=== PATIENT | male | born 1980 | race Caucasian/White ===

== ENCOUNTER 2016-11-22 20:10 | Emergency (ER) | payer SELFPAY ==
[2016-11-22] MEDS ORDERED: KETOROLAC 30 MG/ML VIAL IVP ONE (20:24)
[2016-11-22] MEDS ORDERED: AMPICILLIN SODIUM/SULBACTAM NA 3 G in 0.9 % SODIUM CHLORIDE 100ML 100 ML IVPB ONE (20:24)
[2016-11-22] MEDS ORDERED: 0.9 % SODIUM CHLORIDE 1,000 ML BAG IV ONE ×2 (20:24→23:13)
--- NOTE | 2016-11-22 20:30 | Emergency Department Record ---
History of Present Illness - General Chief complaint: Dental Stated complaint: DENTAL INFECTION Time Seen by Provider: 11/22/16 20:23 Source: Patient Mode of Arrival: Ambulatory Limitations: No limitations - History of Present Illness Initial comments: 36 yo male presents with right facial pain, swelling, dental pain for 2 days. The pain started near tooth #5. He noted pain and swelling. The pain and swelling have increased with spread to the face and eye lid. He has developed right pain and a loss of vision in his right eye. He states he can only see light and movement. No left eye pain. He was incarcerated. He was released today to seek medical care. His vision changes occurred around noon to 1pm. MD complaint: Tooth pain -: Days(s) (2) Location: Tooth # (5) Severity: Severe Quality: Aching Consistency: Constant Worsens with: Movement Context- Dental: History of dental caries Context- Ear: Recent illness Associated Symptoms: Other (eye pain and vision loss) - Related Data Home Medications Medication Instructions Recorded Confirmed Last Taken No Home Med [NO HOME MEDS] 11/22/16 11/22/16 Unknown Allergies Allergy/AdvReac Type Severity Reaction Status Date / Time cinnamon Allergy Intermediate HIVES Verified 11/22/16 20:19 IMMUNIZATIONS Allergy Mild MUSCLE Uncoded 11/22/16 20:19 STIFFNESS green olives Allergy throat Uncoded 11/22/16 20:19 swelling Review of Systems Constitutional: Denies: Chills, Fever, Malaise, Night sweats, Weakness Eyes: Reports: Eye pain, Photophobia, Vision change. Denies: Eye discharge ENT: Reports: Dental pain. Denies: Congestion, Ear pain, Epistaxis, Hearing loss, Throat pain Respiratory: Denies: Cough, Dyspnea, Hemoptysis, Stridor, Wheezes Cardiovascular: Denies: Chest pain, Palpitations, Syncope Endocrine: Denies: Fatigue Gastrointestinal: Denies: Abdominal pain, Diarrhea, Nausea, Vomiting Genitourinary: Denies: Dysuria, Frequency, Hematuria Musculoskeletal: Denies: Arthralgia, Back pain, Myalgia, Neck pain Skin: Denies: Bruising, Change in color, Rash Neurological: Reports: Headache. Denies: Confusion, Numbness, Paresthesias, Seizure, Tingling, Tremors, Vertigo, Weakness Psychiatric: Denies: Anxiety Hematological/Lymphatic: Denies: Blood Clots, Easy bleeding, Easy bruising, Swollen glands Past Medical History - SOCIAL HISTORY Smoking Status: Current every day smoker - RESPIRATORY Hx Respiratory Disorders: No - CARDIOVASCULAR Hx Cardio Disorders: No - NEURO Hx Neuro Disorders: No - GI Hx GI Disorders: No - Hx Genitourinary Disorders: No - ENDOCRINE Hx Endocrine Disorders: No - MUSCULOSKELETAL Hx Musculoskeletal Disorders: No - PSYCH Hx Psych Problems: No - HEMATOLOGY/ONCOLOGY Hx Hematology/Oncology Disorders: No Physical Exam - General General Appearance: Alert, Oriented x3, Cooperative, No acute distress Limitations: No limitations - Head Head exam: Atraumatic. negative: Normal inspection Image of Face/Head: 1 - edema of the upper and lower lids, soft, able to open the eye, mild injection of the conjunctiva, EOMI but states he only sees movement and light, unable to count fingers 2 - swelling, tenderness, soft, mild erythema - Eye Eye exam: PERRL, Conjunctival injection, EOMI, Periorbital swelling, Periorbital tenderness. negative: Normal appearance - ENT ENT exam: Mucous membranes moist, TM's normal bilaterally. negative: Normal exam, Normal orophraynx Ear exam: Normal external inspection. negative: External canal tenderness Nasal Exam: Normal inspection. negative: Discharge, Sinus tenderness Mouth exam: Tongue normal. negative: Normal external inspection, Drooling, Laceration, Muffled voice, Tongue elevation, Trismus Teeth exam: Dental caries, Dental tenderness #, Fractured tooth #, Gingival enlargement. negative: Normal inspection Throat exam: Normal inspection. negative: Tonsillar erythema, Tonsillar exudate - Neck Neck exam: Normal inspection, Full ROM. negative: Tenderness - Respiratory Respiratory exam: Normal lung sounds bilaterally. negative: Respiratory distress - Cardiovascular Cardiovascular Exam: Regular rate, Normal rhythm, Normal heart sounds - GI/Abdominal GI/Abdominal exam: Soft, Normal bowel sounds. negative: Tenderness - Rectal Rectal exam: Deferred - exam: Deferred - Extremities Extremities exam: Normal inspection, Full ROM, Normal capillary refill. negative: Tenderness - Back Back exam: Reports: Normal inspection, Full ROM. Denies: Muscle spasm, Rash noted, Tenderness - Neurological Neurological exam: Alert, Normal gait, Oriented X3 - Psychiatric Psychiatric exam: Normal affect, Normal mood. negative: Agitated, Anxious - Skin Skin exam: Dry, Intact, Normal color, Warm Course - Reevaluation(s) Reevaluation #1: [facility] 20/20 left and the right was 20/100 The labs were reviewed WBC count is 11 CRP is 3.6 BMP is in the normal serrano PT to CT 11/22/16 21:06 11/22/16 21:08 Reevaluation #2: the IOP were checked 3 times on the right 24,25,27 were the three readings 11/22/16 21:46 Reevaluation #3: The CT scan was reviewed. He has a small 13mm x 6mm fluid collection right anterior first molar CW abscess, sinus right maxillary and sphenoid, facial cellulitis 11/22/16 21:59 Reevaluation #4: The site was easily located Lidocaine 1% with epi 2cc local used 11 blade used to open the abscess and easily drain a moderate amount of purulence Tolerated well. Given his eye symptoms he will be transferred for additional specialty consultation [facility] contacted 11/22/16 22:06 Awaiting Call back from [facility] 11/22/16 22:31 Reevaluation #5: I SW Dr Flores of [facility]. There isn't any oral surgery consulting engineer at [facility] and will not be able to accept the transfer. 11/22/16 22:57 [facility] contacted for possible transfer Awaiting physician 11/22/16 23:09 - Consultations Consultation #1: At 23:20 I ZACH NORIEGA. She accepts for transfer to the [facility] ER for further work up and treatment Medical Decision Making - Lab Data Result diagrams: 11/22/16 20:30 11/22/16 20:30 Disposition Disposition: Transfer Clinical Impression: Dental abscess, Facial cellulitis, Vision changes, Preseptal cellulitis of right eye Disposition: Acute Care Hospital Transfer Transfer To: [facility] Reason For Transfer: Dental Abscess with vision changes Accepting Physician: Dr NORIEGA Time Discussed w/Accepting Physician: 22:23 Condition: (2) Stable Forms: Patient Portal Access Time of Disposition: 22:10
[2016-11-22 20:43] LABS: BASO % 0.1 % (0-6); EOS % 0.4 % (0-6); GRAN % 71.6 % (47-80); HEMATOCRIT 40.6 % (42.0-52.0); LYMPH % 18.7 % (16-45); MEAN CORPUSCULAR HEMOGLOBIN 30.7 pg (27-33); MEAN CORPUSCULAR HGB CONC 34.5 g/dl (32-36); MEAN PLATELET VOLUME 10.1 fl (7.4-10.4); MONO % 9.2 % (0-9); PLATELET COUNT 279 K/uL (130-400); RED BLOOD COUNT 4.56 M/uL (4.40-5.70); RED CELL DISTRIBUTION WIDTH 13.1 % (11.5-14.5); WHITE BLOOD COUNT W/O DIFF 11.1 K/uL (4.2-12.2)
[2016-11-22 20:57] LABS: ANION GAP 15.7 (7-16); BLOOD UREA NITROGEN 13 mg/dL (9-20); C-REACTIVE PROTEIN 3.6 mg/dL (0.0-0.9); CARBON DIOXIDE 24.3 mmol/L (22-30); CREATININE 0.9 mg/dL (0.66-1.25); EST GLOMERULAR FILTRATION RATE > 60 ml/min; GLUCOSE,RANDOM 118 mg/dL (70-110)
[2016-11-22] MEDS ORDERED: MORPHINE SULFATE 5 MG/ML PFS IVP ONE (23:08)
[2016-11-23] MEDS ORDERED: 0.9 % SODIUM CHLORIDE 1,000 ML BAG IV ONE (00:03)
--- NOTE | 2016-11-24 14:58 | CT SCAN REPORT ---
EXAM: CT SCAN MAXILLOFACIAL W CONTRAST HISTORY: PAIN IN RIGHT FACE AND JAW. POSSIBLE DENTAL ABSCESS. TECHNIQUE: Routine contrast-enhanced helical CT examination of the facial bones was performed with 100 mL of Omnipaque-300 utilized. COMPARISON: None. FINDINGS: No acute facial bone fracture is identified. The paranasal sinuses are well-developed. There is moderate wall thickening and inflammatory debris within the right maxillary sinus. Mucosal thickening is also noted within several right ethmoid air cells. There is leftward deviation of the nasal septum. Dental caries scattered in multiple teeth. Much of the anterior right maxillary molar is absent due to decay. The remaining roots have adjacent periapical lucency and adjacent to the maxillary alveolar ridge at this level is an area of low-density measuring 13 x 6 mm suspicious for dental abscess. There is mild surrounding cellulitis. There is periapical lucency involving the posterior left mandibular molar, the majority of which is decayed. Dental abscess at this level cannot be excluded. The oropharynx and nasopharynx are unremarkable. The orbits are unremarkable. IMPRESSION: 1. EXTENSIVE DENTAL CARIES. 2. PERIAPICAL LUCENCY INVOLVING THE ANTERIOR RIGHT MAXILLARY MOLAR, THE MAJORITY OF WHICH IS DECAYED. ADJACENT TO THE ANTERIOR MARGIN OF THE ALVEOLAR RIDGE AT THIS LEVEL IS FLUID DENSITY MEASURING 13 X 6 MM SUSPICIOUS FOR ABSCESS. 3. INFLAMMATORY CHANGES WITHIN THE RIGHT MAXILLARY SINUS AND SEVERAL RIGHT ETHMOID AIR CELLS. 4. PERIAPICAL LUCENCY INVOLVING THE POSTERIOR LEFT MANDIBULAR MOLAR WITH ABSCESS AT THIS LEVEL NOT EXCLUDED. ADDENDUM: NOT MENTIONED IN THE ORIGINAL REPORT IS MINOR PERIORBITAL SOFT TISSUE SWELLING ON THE RIGHT CONSISTENT WITH MILD CELLULITIS. NO ORBITAL ABSCESS IDENTIFIED. JOB NUMBER: [id number] [facility]
== END 2016-11-23 00:03 | disposition short-term general hospital (02) ==
LOC: ER 20:10
DX: K04.7 Periapical abscess without sinus (principal); L03.213 Periorbital cellulitis; L03.211 Cellulitis of face; F17.210 Nicotine dependence, cigarettes, uncomplicated
CPT/HCPCS: 41800 ×2; 99285 ×2; 96365; 96375; 85025; 86140; 80048; 70487; Q9967; J0295; J1885; J2270; J7030

== ENCOUNTER 2016-12-31 22:53 | Emergency (ER) | payer SELFPAY ==
[2016-12-31] MEDS ORDERED: ONDANSETRON HCL IV 4 MG/2 ML VIAL IV ONE (23:13)
[2016-12-31] MEDS ORDERED: 0.9 % SODIUM CHLORIDE 1,000 ML BAG IV ONE (23:13)
[2016-12-31] MEDS ORDERED: FAMOTIDINE IV 20 MG/2 ML VIAL IVP ONE (23:13)
--- NOTE | 2016-12-31 23:13 | Emergency Department Record ---
History of Present Illness - General Chief Complaint: Abdominal Pain Stated Complaint: ABD PAIN Time Seen by Provider: 12/31/16 22:59 Source: Patient - History of Present Illness Initial Comments: The patient complains of upper abdominal pain associated with nausea and no vomiting. Twice he coughed up phlegm and noticed that there was blood in it. He is a heavy smoker but has been cutting down on the amount. 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 MD Complaint: Abdominal pain - Related Data Home Medications Medication Instructions Recorded Confirmed Last Taken No Home Med [NO HOME MEDS] 11/22/16 11/22/16 Unknown Allergies Allergy/AdvReac Type Severity Reaction Status Date / Time cinnamon Allergy Intermediate HIVES Verified 11/22/16 20:19 IMMUNIZATIONS Allergy Mild MUSCLE Uncoded 11/22/16 20:19 STIFFNESS green olives Allergy throat Uncoded 11/22/16 20:19 swelling pimentos Allergy ANAPHYLAXIS Uncoded 12/31/16 23:04 Review of Systems Reviewed: No additional complaints except as noted below Constitutional: Reports: As per HPI. Denies: Chills, Fever, Malaise, Night sweats, Weakness, Weight change Eyes: Reports: As per HPI. Denies: Eye discharge, Eye pain, Photophobia, Vision change ENT: Reports: As per HPI. Denies: Congestion, Dental pain, Ear pain, Epistaxis , Hearing loss, Throat pain Respiratory: Reports: As per HPI. Denies: Cough, Dyspnea, Hemoptysis, Stridor, Wheezes Cardiovascular: Reports: As per HPI. Denies: Arrhythmia, Chest pain, Dyspnea on exertion, Edema, Murmurs, Orthopnea, Palpitations, Paroxysmal nocturnal dyspnea, Rheumatic Fever, Syncope Endocrine: Reports: As per HPI. Denies: Fatigue, Heat or cold intolerance, Polydipsia, Polyuria Gastrointestinal: Reports: As per HPI. Denies: Abdominal pain, Constipation, Diarrhea, Hematemesis, Hematochezia, Melena, Nausea, Vomiting Genitourinary: Reports: As per HPI. Denies: Dysuria, Frequency, Hematuria, Incontinence, Retention, Testicular pain, Testicular mass, Urgency Musculoskeletal: Reports: As per HPI. Denies: Arthralgia, Back pain, Gout, Joint swelling, Myalgia, Neck pain Skin: Reports: As per HPI. Denies: Bruising, Change in color, Change in hair/ nails, Lesions, Pruritus, Rash Neurological: Reports: As per HPI. Denies: Abnormal gait, Confusion, Headache, Numbness, Paresthesias, Seizure, Tingling, Tremors, Vertigo, Weakness Psychiatric: Reports: As per HPI. Denies: Anxiety, Auditory hallucinations, Depression, Homicidal thoughts, Suicidal thoughts, Visual hallucinations Hematological/Lymphatic: Reports: As per HPI. Denies: Anemia, Blood Clots, Easy bleeding, Easy bruising, Swollen glands Past Medical History - SOCIAL HISTORY Smoking Status: Current every day smoker - RESPIRATORY Hx Respiratory Disorders: No - CARDIOVASCULAR Hx Cardio Disorders: No - NEURO Hx Neuro Disorders: No - GI Hx GI Disorders: No - Hx Genitourinary Disorders: No - ENDOCRINE Hx Endocrine Disorders: No - MUSCULOSKELETAL Hx Musculoskeletal Disorders: No - PSYCH Hx Psych Problems: No - HEMATOLOGY/ONCOLOGY Hx Hematology/Oncology Disorders: No Physical Exam - General General Appearance: Alert, Oriented x3, Cooperative, Mild distress (unkempt, alert but avoids direct answers to questions) - Head Head exam: Normal inspection - Eye Eye exam: Normal appearance, PERRL Pupils: Normal accommodation - ENT ENT exam: Normal exam, Mucous membranes moist, Normal external ear exam, Normal orophraynx, TM's normal bilaterally Ear exam: Normal external inspection. negative: External canal tenderness Nasal Exam: Normal inspection. negative: Discharge, Sinus tenderness Mouth exam: Normal external inspection, Tongue normal Teeth exam: Normal inspection. negative: Dental caries Throat exam: Normal inspection. negative: Tonsillar erythema, Tonsillar exudate - Neck Neck exam: Normal inspection, Full ROM. negative: Lymphadenopathy, Meningismus , Tenderness - Respiratory Respiratory exam: Normal lung sounds bilaterally. negative: Chest wall tenderness, Respiratory distress - Cardiovascular Cardiovascular Exam: Regular rate, Normal rhythm, Normal heart sounds - GI/Abdominal GI/Abdominal exam: Soft, Normal bowel sounds, Tenderness (tender from umbilicus to entire upper abdomen on light palpation; ). negative: Distended, Rebound, Rigid - Rectal Rectal exam: Deferred - exam: Deferred - Extremities Extremities exam: Normal inspection, Full ROM, Normal capillary refill. negative: Tenderness - Back Back exam: Reports: Normal inspection, Full ROM. Denies: Muscle spasm, Rash noted, Tenderness - Neurological Neurological exam: Alert, Normal gait, Oriented X3, Reflexes normal - Psychiatric Psychiatric exam: Normal affect, Normal mood - Skin Skin exam: Dry, Intact, Normal color, Warm Course - Reevaluation(s) Reevaluation #1: The patient states that he had a blood clot to his lungs last August found when he went to [facility], but "they never did nothin' for me." He has never been on blood thinners and is not currently. 12/31/16 23:18 Reevaluation #2: When pressed for further history the patient admitted that he has relapsed this past week and has again been taking amphetamines and cocaine again. He states he has never had a heart attack, denies DM, htn, chol elevation or FH. 12/31/16 23:49 Reevaluation #3: The patient is a VERY poor historian and does not seem able to focus to answer directed questions. His initial nitro was given to see if it helped his upper abdominal pain, and he said, "yes, his chest feels better." His was the first time he mentioned anything about his chest hurting. Upon further questioning he admitted he has had substernal chest pain on and off throughout the day along with his upper abdominal pain. A nitro trial was begun. Old EKG's being sought from prior ED visits of the area. Enzymes returned normal times 3, however his EKG is showing [address] elevations in inferior and lateral leads. Plan is to transfer to acute care hospital, portable chest and rapid abdominal scan in progress. He states that he was taking amphetamines Tuesday, Tuesday, and Tuesday of this week, and did some cocaine earlier today. After nitro trial, he looks and feels much better, states his chest is feeling totally normal but his abdominal pain is unchanged. BP has improved. 01/01/17 00:05 Reevaluation #4: Discussed with shipper and receiving litigation services manager at [facility] who will review EKG's but requests medicine admission. Spoke with Medicine litigation services manager Dr. Strickland who is requesting he be sent to the [facility] for the campaign analyst to see. DW Dr. Thompson ED attending who accepts patient in transfer. 01/01/17 00:36 01/01/17 01:05 01/01/17 01:10 Medical Decision Making - Management Options MDM Management: Additional Work-up Planned (e.g. ADM/Transfer/OP Study) - Data Complexity MDM Data: Labs Ordered and/or Reviewed, X-Ray Ordered and/or Reviewed ( Noncontrast CT abd/pelvis: large amout of stool in colon. Portable CXR: Neg per ED physician.) - Lab Data Result diagrams: 12/31/16 23:25 12/31/16 23:25 Disposition Disposition: Transfer Clinical Impression: Upper abdominal pain Chest pain Qualifiers: Chest pain type: precordial pain Qualified Code(s): R07.2 - Precordial pain Disposition: Acute Care Hospital Transfer Decision to Admit: Admit from ER Transfer To: [facility] Reason For Transfer: campaign analyst/ EKG changes Accepting Physician: Dr. Thompson emergency department Time Discussed w/Accepting Physician: 01:13 Condition: (2) Stable Forms: Patient Portal Access
[2016-12-31 23:38] LABS: BASO % 0.1 % (0-6); EOS % 0.3 % (0-6); GRAN % 70.3 % (47-80); HEMATOCRIT 46.5 % (42.0-52.0); HEMOGLOBIN 16.4 gm/dl (14.0-18.0); LYMPH % 20.3 % (16-45); MEAN CELL VOLUME 86.8 fl (81-97); MEAN CORPUSCULAR HEMOGLOBIN 30.6 pg (27-33); MEAN CORPUSCULAR HGB CONC 35.3 g/dl (32-36); MEAN PLATELET VOLUME 9.9 fl (7.4-10.4); PLATELET COUNT 328 K/uL (130-400); RED BLOOD COUNT 5.36 M/uL (4.40-5.70); RED CELL DISTRIBUTION WIDTH 13.1 % (11.5-14.5); WHITE BLOOD COUNT W/O DIFF 11.5 K/uL (4.2-12.2)
[2016-12-31] MEDS ORDERED: ASPIRIN 325 MG TAB ENTERIC-COATED PO ONE (23:45)
[2016-12-31 23:47] LABS: ALBUMIN 4.9 gm/dL (3.5-5.0); ALKALINE PHOSPHATASE 79 U/L (38-126); ALT/SGPT 38 U/L (21-72); AMYLASE 77 U/L (30-110); ANION GAP 12.8 (7-16); AST/SGOT 24 U/L (17-59); BILIRUBIN,TOTAL 0.99 mg/dL (0.2-1.3); BLOOD UREA NITROGEN 10 mg/dL (9-20); CARBON DIOXIDE 25.2 mmol/L (22-30); CREATININE 0.9 mg/dL (0.66-1.25); EST GLOMERULAR FILTRATION RATE > 60 ml/min; GLUCOSE,RANDOM 92 mg/dL (70-110); LIPASE 71 U/L (23-300); TOTAL PROTEIN 7.9 gm/dL (6.3-8.2)
[2016-12-31] MEDS: NITROGLYCERIN 0.4MG SL TABLET #25 BTL SL PRN (23:52)
[2016-12-31 23:59] LABS: TROPONIN I < 0.012 ng/mL (0.00-0.034)
[2017-01-01] MEDS: NITROGLYCERIN 0.4MG SL TABLET #25 BTL SL PRN ×2 (00:02→00:12)
[2017-01-01 00:04] LABS: CKMB 1.5 ug/L (0-6)
[2017-01-01 01:32] LABS: URINE APPEARANCE CLEAR; URINE BILIRUBIN NEGATIVE (NEGATIVE); URINE BLOOD NEGATIVE (NEGATIVE); URINE COLOR YELLOW; URINE GLUCOSE (UA) NEGATIVE (NEGATIVE); URINE KETONE TRACE (NEGATIVE); URINE LEUKOCYTE ESTERASE NEGATIVE (NEGATIVE); URINE NITRITE NEGATIVE (NEGATIVE); URINE PROTEIN NEGATIVE (NEGATIVE); URINE UROBILINOGEN 0.2 E.U./dL (0.20 - 1.00)
[2017-01-01 01:40] LABS: AMPHETAMINE SCREEN URINE DETECTED; BARBITURATE SCREEN URINE NOT DETECTED; BENZODIAZEPINE SCREEN URINE NOT DETECTED; COCAINE SCREEN URINE DETECTED; METHADONE SCREEN URINE NOT DETECTED; METHAMPHETAMINE SCREEN DETECTED; OPIATE SCREEN URINE NOT DETECTED; OXYCODONE SCREEN URINE NOT DETECTED; PHENCYCLIDINE SCREEN URINE NOT DETECTED; PROPOXYPHENE SCREEN URINE NOT DETECTED; THC SCREEN URINE DETECTED; TRICYCLIC ANTIDEPRESSANT SCRN NOT DETECTED
[2017-01-01] MEDS ORDERED: MORPHINE SULFATE 5 MG/ML PFS IVP ONE (01:41)
[2017-01-01] MEDS ORDERED: ONDANSETRON HCL IV 4 MG/2 ML VIAL IVP ONE (01:49)
--- NOTE | 2017-01-05 13:28 | RADIOLOGY REPORT ---
EXAM: PORTABLE CHEST HISTORY: PAIN. TECHNIQUE: A portable AP view of the chest was obtained. Comparison: None. Encounter: Initial. FINDINGS: The heart size is normal. The lungs are clear. No pneumothorax. IMPRESSION: NEGATIVE CHEST EXAMINATION. JOB NUMBER: [id number] MTDD
--- NOTE | 2017-01-05 13:41 | CT SCAN REPORT ---
EXAM: CT OF THE ABDOMEN AND PELVIS WITHOUT CONTRAST HISTORY: EPIGASTRIC PAIN. TECHNIQUE: CT of the abdomen and pelvis was performed without oral or IV contrast. This limits evaluation of bowel and solid visceral organs. Comparison: None. FINDINGS: Limited evaluation of the lung bases is unremarkable. The osseous structures are grossly intact. Limited evaluation of the liver, spleen, adrenal glands, and pancreas is unremarkable. Horseshoe type kidney incidentally noted. The gallbladder is present, grossly unremarkable. Normal appendix. Abundant stool in the colon. No free air or free fluid. IMPRESSION: 1. ABUNDANT STOOL IN THE COLON. 2. HORSESHOE TYPE KIDNEY. JOB NUMBER: [id number] MTDD
== END 2017-01-01 01:35 | disposition short-term general hospital (02) ==
LOC: ER 22:53
DX: R07.2 Precordial pain (principal); R10.10 Upper abdominal pain, unspecified; R11.0 Nausea; F17.210 Nicotine dependence, cigarettes, uncomplicated
CPT/HCPCS: 99285 ×2; 96376; 96374; 96375; 82550; 82150; 83690; 85025; 85651; 80076; 82553; 84484; 80048; 81003; 80305; 85379; 71010; 74176; 93005 ×2; 93010 ×2; J3490; J2405 ×2; J2270; J7030